=== PATIENT | male | born 1955 | race Caucasian/White ===

== ENCOUNTER → 2017-11-06 09:12 | Outpatient (CLI) | payer BC, SELFPAY ==
[2017-11-06 11:32] LABS: PSA,Total - Annual Screen 1.87 ng/mL (0.00-4.00)
== END ==
PROVIDERS: Family Provider Family Medicine; PCP Family Medicine; Visit Provider Urology
DX: Z12.5 Encounter for screening for malignant neoplasm of prostate (principal)
CPT/HCPCS: 36415; 84153; G0103

== ENCOUNTER 2021-05-14 11:33 | Emergency (ER) | payer BC, MEDICARE, SELFPAY ==
[2021-05-14 11:34] VITALS: BP 149/102; PULSE 83; RESP 16; TEMP 36.5; O2SAT 98; BMI 25.7
[2021-05-14 11:57] VITALS: TEMP 36.7
--- NOTE | 2021-05-14 12:31 | EKG12_ITS ---
Test Reason : Blood Pressure : / mmHG Vent. Rate : 079 BPM Atrial Rate : 079 BPM P-R Int : 154 ms QRS Dur : 100 ms QT Int : 370 ms P-R-T Axes : 051 014 028 degrees QTc Int : 424 ms Normal sinus rhythm Normal ECG Confirmed by SYED CATHERINE, TOBY ([id number]), editor managing director JAYDE GRAYSON ([id number]) on 05/16/2021 10:12:44 AM Referred By: Confirmed By:TOBY LYNCH MD
--- NOTE | 2021-05-14 12:32 | EDS_ITS ---
HPI History of Present Illness Chief Complaint: General Illness Informant: patient Onset/Context/Timing Onset: Weeks (1-2) Context: Gradual Onset Timing: Continuous Quality: aching Location: all over Current Severity: Mild Maximum Severity: Moderate Worsened by: nothing in particular Relieved by: ibuprofen/tylenol partially Associated Symptoms Associated Symptoms: brain fog, chronic cough, headaches off and on Narrative Narrative: Patient states he was mandated by his employer to get the Covid vaccine, and he did fine with the first Pfizer vaccine but after the second injection which was on May 04, he started having fevers and chills 24 hours later, followed by myalgias and malaise, brain fog, some headaches off and on, his chronic cough has not necessarily been worse, but has been persistent, and he still has all of these symptoms so presents for evaluation. [facility] Medical History (Updated 05/14/21 @ 14:[address] Derrick Olson MD) Kidney stones Medical History no medical history no medical history Allergy/AdvReac Type Severity Reaction Status Date / Time epinephrine Allergy Other Verified 05/14/21 11:37 iodine Allergy PT UNSURE Verified 05/14/21 11:37 OF REACTION Surgical History (Updated 05/14/21 @ 12:48 by Mikel Arroyo) History of lithotripsy Social History Smoking Status: Never smoker ROS ROS ED Constitutional Constitutional ED: Reports body ache(s), chills, fatigue, fever(s) and malaise Eyes Eyes: Denies change in vision or diplopia ENT ENT ED: Denies rhinorrhea or sore throat Cardiovascular Cardiovascular: Denies chest pain or palpitations Respiratory/Chest Respiratory/Chest: Denies cough or dyspnea Gastrointestinal Gastrointestinal: Denies abdominal pain, diarrhea, nausea or vomiting Genitourinary Genitourinary ED: Denies dysuria or hematuria Musculoskeletal Musculoskeletal: Reports myalgias; Denies back pain or neck pain Integumentary Denies abscess or rash Neurologic Neurologic: Reports other Details: I feel like my head is in a fog ; Denies confusion, convulsions, headache(s), paresthesias, seizures, syncope or weakness Psychiatric Psychiatric: Denies anxiety or suicidal thoughts EXAM Physical Exam Const Vital Signs: 05/14/21 11:34 05/14/21 11:57 05/14/21 12:45 Temperature 97.7 F L 98.0 F Temperature Source Temporal Oral Pulse Rate 83 Respiratory Rate 16 Respiratory Effort Normal Respiratory Pattern Normal Blood Pressure 149/102 H Blood Pressure Mean 117 Pulse Ox 98 96 Oxygen Delivery Method Room Air Room Air 05/14/21 14:07 Temperature Temperature Source Pulse Rate 79 Respiratory Rate 18 Respiratory Effort Respiratory Pattern Blood Pressure 140/94 H Blood Pressure Mean 109 Pulse Ox 96 Oxygen Delivery Method Room Air Positive well nourished and well developed General Appearance ED: well developed and NAD HEENT Reports moist mucous membranes normocephalic and atraumatic Eyes PERRL and EOMs intact bilaterally Neck full ROM, no lymphadenopathy, supple and no meningeal signs Resp normal respiratory effort and clear to auscultation bilaterally Cardio regular rate, regular rhythm and no murmurs Rate: Negative for tachycardic GI non-tender and non-distended Auscultation: normoactive bowel sounds Palpation: soft Back/Spine no CVA tenderness General Back: other FROM Extremity normal to inspection General Extremety ED: Negative for edema, pulses abnormal or tenderness General Extremity: Negative for edema or pulses abnormal Neuro oriented x3, CN's II-XII intact bilaterally and no sensory deficits noted Sensorium / Orientation: awake and alert Motor Exam: strength 5/5 throughout Skin no rashes or lesions noted and no wounds MDM MDM MDM Narrative Medical decision making narrative: Chest x-ray and labs are all unremarkable see below. His rapid Covid is negative. Although I agree it is unusual to have side effects from the vaccination to last 1.5 weeks, I suspect that is what is going on, unless he actually coincidentally has COVID-19. I am sending a PCR as a send out to rule this out, in the meantime I think the patient is able to work and go about his life while masked. Recommend supportive care. Lab Data Attestation: I reviewed the patient's lab results. Labs: Laboratory Results - last 24 hr 05/14/21 05/14/21 05/14/21 13:00 13:00 13:01 WBC 5.9 RBC 4.94 Hgb 15.0 Hct 43.4 MCV 87.9 MCH 30.4 MCHC 34.6 RDW Std Deviation 41.7 RDW Coeff of Kaitlyn 13.0 Plt Count 209 MPV 8.9 Immature Gran % (Auto) 0.200 Neut % (Auto) 59.0 Lymph % (Auto) 28.3 [place] % (Auto) 10.1 H Eos % (Auto) 1.7 Baso % (Auto) 0.7 Absolute Neuts (auto) 3.5 Absolute Lymphs (auto) 1.68 Nucleated RBC % 0 Sodium 137 Potassium 3.6 Chloride 102 Carbon Dioxide 29.0 Anion Gap 6 BUN 11 Creatinine 0.97 Estim Creat Clear Calc 65.16 Est GFR (MDRD) Af Amer 100 Est GFR (MDRD) Non-Af 82 BUN/Creatinine Ratio 11.4 Glucose 139 H Lactic Acid Calcium 8.7 Total Bilirubin 0.90 AST 30 ALT 57 Alkaline Phosphatase 78 Total Creatine Kinase 116 Troponin I High Sens 5 Total Protein 7.5 Albumin 3.3 Globulin 4.2 Albumin/Globulin Ratio 0.8 L Urine Color Yellow Urine Clarity Clear Urine pH 6.5 Ur Specific [place] 1.010 Urine Protein 15 H Urine Glucose (UA) Normal Urine Ketones Negative Urine Occult Blood Negative Urine Nitrite Negative Urine Bilirubin Negative Urine Urobilinogen 1 H Ur Leukocyte Esterase Negative Urine RBC 0 SEEN Urine WBC 0-5 SEEN Ur Squamous Epith Cells 0 SEEN Urine Bacteria 1+ Urine Mucus 0 SEEN 05/14/21 13:01 WBC RBC Hgb Hct MCV MCH MCHC RDW Std Deviation RDW Coeff of Kaitlyn Plt Count MPV Immature Gran % (Auto) Neut % (Auto) Lymph % (Auto) [place] % (Auto) Eos % (Auto) Baso % (Auto) Absolute Neuts (auto) Absolute Lymphs (auto) Nucleated RBC % Sodium Potassium Chloride Carbon Dioxide Anion Gap BUN Creatinine Estim Creat Clear Calc Est GFR (MDRD) Af Amer Est GFR (MDRD) Non-Af BUN/Creatinine Ratio Glucose Lactic Acid 0.8 Calcium Total Bilirubin AST ALT Alkaline Phosphatase Total Creatine Kinase Troponin I High Sens Total Protein Albumin Globulin Albumin/Globulin Ratio Urine Color Urine Clarity Urine pH Ur Specific [place] Urine Protein Urine Glucose (UA) Urine Ketones Urine Occult Blood Urine Nitrite Urine Bilirubin Urine Urobilinogen Ur Leukocyte Esterase Urine RBC Urine WBC Ur Squamous Epith Cells Urine Bacteria Urine Mucus Radiography Diagnostic Testing: Clinical Impression(s) from Imaging Studies Chest X-Ray 05/14/21 13:00 IMPRESSION: Unremarkable chest. In the presence of cough recommend CT for detection of mild/early viral infection. Electronically Signed: Lana Arcos MD at 13:20 EST Tel , Service support , EKG Initial EKG: Attestation: I personally reviewed and interpreted this EKG as follows: Interpretation: No Acute Injury Pattern Comments: Normal EKG Discharge Plan Triage Chief Complaint: General Illness ED Provider: Derrick Olson Dx/Rx/DC Orders Clinical Impression: Adverse effect of COVID-19 vaccine Instructions: ED Drug Reaction, Other, [employer] COVID-19 VACCINE- rna ingredient [id number] injection Injectable Suspension 1 dose Primary Care Provider: Josep Castañeda Referrals: Josep Castañeda MD [Primary Care Provider] - 3-5 Days if not improving Activity Restrictions/Additional Instructions: Continue tylenol and/or ibuprofen as needed for any achy pains or fevers. Disposition Disposition: Home, Self Care
[2021-05-14 12:45] VITALS: O2SAT 96
--- NOTE | 2021-05-14 13:00 | RAD_ITS ---
STUDY: X-RAY CHEST REASON FOR EXAM: Male, 65 years old. cough CHRONIC ON AND OFF COUGH SINCE 04/05, LAST COUPLE NIGHTS HAD NIGHT SWEATS AND FEVER TODAY OF 102 AT HOME TECHNIQUE: Frontal portable view of the chest COMPARISON: None. FINDINGS: The lungs are clear and expanded. There is no demonstrated pleural abnormality. Normal size heart. Normal mediastinum and pam. Normal visualized pulmonary arteries. Normal visualized aortic arch and descending thoracic aorta. Normal visualized thoracic spine. Normal visualized ribs, clavicles, and shoulders. There is no demonstrated abnormality of the visualized soft tissue structures of the upper abdomen. RAD/Chest 1 View (Portable) IMPRESSION: Unremarkable chest. In the presence of cough recommend CT for detection of mild/early viral infection. Electronically Signed: Lana Arcos MD at 13:20 EST Tel , Service support ,
[2021-05-14 13:13] LABS: Mucous, Urine 0 SEEN /hpf (<or=2+); Red Blood Cells-Urine 0 SEEN /hpf (0-5); Squamous Epithelial Cells - UA 0 SEEN /hpf (0-5)
[2021-05-14 13:17] LABS: Color, Urine Yellow (Yellow); Glucose, Dipstick Normal (Normal); Ketone-Dipstick Negative (Negative); Leukocyte Esterase-Dipstick Negative /ul (Negative); Nitrite-Dipstick Negative (Negative); Occult Blood-Urine Negative /ul (Negative); Protein-Dipstick 15 mg/dl (Negative); Urine Bilirubin Dipstick Negative (Negative); Urine Clarity Clear (Clear); Urine Urobilinogen 1 mg/dl (Normal); Urine pH 6.5 (5.0 - 8.0)
[2021-05-14 13:29] LABS: Bacteria 1+ /hpf (None Seen); White Blood Cells 0-5 SEEN /hpf (0-5)
[2021-05-14 13:35] LABS: ALB/GLOB Ratio 0.8 RATIO (0.9-2.4); AST(SGOT) 30 U/L (15-37); Alanine Aminotransfer ALT/SGPT 57 U/L (16-61); Albumin, Serum 3.3 g/dL (3.2-5.0); Alkaline Phosphatase 78 U/L (45-117); Anion Gap 6 (5-15); BUN 11 mg/dL (7-18); BUN/Creat Ratio 11.4 RATIO (10-20); CPK Total, Creatine Kinase 116 U/L (39-308); Calcium,Total 8.7 mg/dL (8.5-10.1); Chloride 102 mmol/L (98-107); Creatinine, Serum 0.97 mg/dL (0.70-1.30); EST Glomerular Filtration Rate 82 mL/min (>60); Est Glom Filt Rate - Afr Amer 100 mL/min (>60); Estimated Creatinine Clearance 65.16 ml/min; Globulin 4.2 g/dL (2.2-4.2); Glucose 139 mg/dL (74-106); Potassium 3.6 mmol/L (3.5-5.1); Protein, Total 7.5 g/dL (6.4-8.2); Sodium Level 137 mmol/L (136-145); Troponin-I HS 5 pg/mL (3.0-78.0)
[2021-05-14 13:40] LABS: Absolute Lymphocyte Count 1.68 X10^3/uL (0.83-4.51); Absolute Neutrophil Count 3.5 X10^3/uL (2.0-7.7); Basophil# 0.04 X10^3/uL; Basophil% 0.7 % (0-1); Eosinophils% 1.7 % (0-5); Hematocrit 43.4 % (40-54); Lymphocyte # 1.68 X10^3/ul (0.83-4.51); Lymphocyte % 28.3 % (19-41); Mean Corp Hgb Conc 34.6 g/dL (32-36); Mean Corpuscular Hgb 30.4 pg (27.0-32.0); Mean Corpuscular Volume 87.9 fL (80-94); Mean Platelet Vol. 8.9 fl (6.2-12.0); Monocyte% 10.1 % (0-10); NRBC Flagged by Analyzer 0 % (0-5); Platelet Count 209 K/mm3 (150-450); RBC Distribution Width SD 41.7 fl (35.1-43.9); Red Blood Count 4.94 M/mm3 (4.6-6.2); White Blood Count 5.9 K/mm3 (4.4-11.0)
[2021-05-14 13:44] LABS: Lactic Acid 0.8 mmol/L (0.4-1.9)
[2021-05-14 14:07] VITALS: BP 140/94; PULSE 79; RESP 18; O2SAT 96
[2021-05-14 15:09] VITALS: BP 153/91; PULSE 83; RESP 16; O2SAT 97
== END 2021-05-14 15:11 | disposition home or self-care (01) ==
PROVIDERS: Emergency Provider Emergency Medicine; PCP Family Medicine
DX: R05.9 Cough, unspecified (principal); R51.9 Headache, unspecified; M79.10 Myalgia, unspecified site; R53.81 Other malaise; T50.B95A Adverse effect of other viral vaccines, initial encounter
CPT/HCPCS: 71045; 80053; 81001; 82550; 83605; 84484; 85025; 87040; 87086; 87088; 87426; 87635; 93005; 99285; U0005; A4216; U0003

== ENCOUNTER → 2021-05-19 14:15 | Outpatient (CLI) | payer BC, MEDICARE, SELFPAY ==
--- NOTE | 2021-05-19 14:21 | RAD_ITS ---
EXAM: XR ABDOMEN, 2 VIEWS CLINICAL INDICATION: CHANGE IN BOWEL FUNCTION TECHNIQUE: Frontal view of the abdomen/pelvis with upright view of the abdomen. This report was created using [employer] report generation technology. COMPARISON: 07.06.15. FINDINGS: LOWER THORAX: No acute pathology. INTRAPERITONEAL SPACE: No free air. GASTROINTESTINAL TRACT: Unremarkable. Non-obstructive. No bowel or stomach distention. ORGANS: Unremarkable as visualized. No organomegaly. No abnormal calcifications. BONES/JOINTS: Degenerative findings in the lumbar spine. SOFT TISSUES: No acute pathology. RAD/Abd Inc Decub and/or Erect IMPRESSION: No acute findings in the abdomen or pelvis. Electronically Signed: Meng De La Torre MD at 20:58 EST , Service support ,
[2021-05-19 17:35] LABS: Erythrocyte Sedimentation Rate 11 mm/hr (0-20)
[2021-05-19 17:44] LABS: Vitamin D,25 Hydroxy 13.2 ng/mL
[2021-05-19 17:58] LABS: CRP 9.71 mg/L (0.0-3.0)
== END ==
PROVIDERS: PCP Family Medicine; Referring Provider Family Medicine; Visit Provider Family Medicine
DX: R53.83 Other fatigue (principal); R19.8 Other specified symptoms and signs involving the digestive system and abdomen
CPT/HCPCS: 36415; 74019; 82306; 84443; 85652; 86140

== ENCOUNTER 2022-02-11 10:59 | Emergency (ER) | payer BC, MEDICARE, SELFPAY ==
[2022-02-11 11:01] VITALS: BP 160/98; PULSE 99; RESP 17; TEMP 36.5; O2SAT 97; BMI 26.4
--- NOTE | 2022-02-11 11:22 | RAD_ITS ---
STUDY: X-RAY CHEST REASON FOR EXAM: Male, 66 years old. chest pain TECHNIQUE: PA and lateral views of the chest. COMPARISON: 05/14/2021 FINDINGS: The lungs are clear and expanded. There is no demonstrated pleural abnormality. Normal size heart. Normal mediastinum and pam. Normal visualized pulmonary arteries. Normal visualized aortic arch and descending thoracic aorta. Normal visualized thoracic spine. Normal visualized ribs, clavicles, and shoulders. There is no demonstrated abnormality of the visualized soft tissue structures of the upper abdomen. RAD/Chest PA and Lateral IMPRESSION: Normal x-ray examination of the chest. Electronically Signed: Reggie Harvey MD at 12:51 EDT ,
--- NOTE | 2022-02-11 11:22 | EKG12_ITS ---
Test Reason : CHEST PAIN Blood Pressure : / mmHG Vent. Rate : 099 BPM Atrial Rate : 099 BPM P-R Int : 150 ms QRS Dur : 096 ms QT Int : 340 ms P-R-T Axes : 065 044 049 degrees QTc Int : 436 ms Normal sinus rhythm Normal ECG Confirmed by BOBBY CATHERINE, DB ([id number]), web content editor JAYDE GRAYSON ([id number]) on 02/14/2022 9:08:12 AM Referred By: LIBRADO Confirmed By:NICHELLE ROSALES MD
[2022-02-11 11:43] LABS: Absolute Lymphocyte Count 2.26 X10^3/uL (0.83-4.51); Absolute Neutrophil Count 5.6 X10^3/uL (2.0-7.7); Basophil# 0.05 X10^3/uL; Basophil% 0.6 % (0-1); Eosinophil# 0.11 X10^3/uL; Eosinophils% 1.3 % (0-5); Hemoglobin 16.3 g/dL (13.0-16.5); Lymphocyte # 2.26 X10^3/ul (0.83-4.51); Lymphocyte % 26.4 % (19-41); Mean Corp Hgb Conc 35.4 g/dL (32-36); Mean Corpuscular Volume 90.2 fL (80-94); Mean Platelet Vol. 9.6 fl (6.2-12.0); Monocyte# 0.51 X10^3/uL; NRBC Flagged by Analyzer 0 % (0-5); Neutrophil # 5.61 X10^3/uL (2.7-7.7); Neutrophil % 65.5 % (47-70); Platelet Count 247 K/mm3 (150-450); RBC Distribution Width CV 12.4 % (11.6-14.6); RBC Distribution Width SD 40.8 fl (35.1-43.9); White Blood Count 8.6 K/mm3 (4.4-11.0)
[2022-02-11 12:00] VITALS: BP 151/99; PULSE 92; RESP 26; O2SAT 97
[2022-02-11 12:00] LABS: Anion Gap 6 (5-15); BUN 17 mg/dL (7-18); BUN/Creat Ratio 17.3 RATIO (10-20); Calcium,Total 9.1 mg/dL (8.5-10.1); Chloride 106 mmol/L (98-107); Creatinine, Serum 0.98 mg/dL (0.70-1.30); EST Glomerular Filtration Rate 81 mL/min (>60); Est Glom Filt Rate - Afr Amer 98 mL/min (>60); Estimated Creatinine Clearance 63.63 ml/min; Glucose 187 mg/dL (74-106); Potassium 4.1 mmol/L (3.5-5.1); Sodium Level 140 mmol/L (136-145); Troponin-I HS (w/2H Reflex) 4 pg/mL (3.0-78.0)
--- NOTE | 2022-02-11 13:09 | ED.VIS.CHEST ---
HPI History of Present Illness Chief Complaint: Chest Pain Detail of Chief Complaint: Right-sided chest pain and back pain for approximately 2 weeks. 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 He denies any precipitating, exacerbating or alleviating factors. This occurred after a near fall riding his tractor. He denies history of VTE. Denies leg pain, swelling discoloration. He denies history of peptic ulcers, hiatal hernia reflux. He denies black or maroon-colored stool. He denies smoking. Father had an AL at the age of 66. 3 colleagues had similar presentation in of MIs. Prior Similar Symptoms: No Recent Illness/Hospitalization: No CVD Risk Factors: Negative for Hypertension, Diabetes, Hypercholesterolemia, Family History 1' </=55 or Smoking PE Risk Factors: Negative for Recent Travel/Surgery, Recent Immobilization, Prior DVT or PE, Cancer or OCP + Smoking + >/=35 TAD Risk Factors: Negative for Marfan's Syndrome, Hypertension or Family History PFSH PFS Medical History Kidney stones Home Medications NK 02/11/22 [History Last Taken Unknown] Allergy/AdvReac Type Severity Reaction Status Date / Time epinephrine Allergy Other Verified 02/11/22 10:59 iodine Allergy PT UNSURE Verified 02/11/22 10:59 OF REACTION Surgical History History of lithotripsy Social History (Updated 02/11/22 @ 13:[address] Anthony Gupta MD) household members: none Smoking Status: Never smoker substance use type: does not use ROS ROS ED Constitutional Constitutional ED: Denies chills, fever(s), subjective, sweats or weight loss Eyes Eyes: Reports none; Denies blurry vision, change in vision or diplopia ENT ENT ED: Denies ear pain, rhinorrhea or sore throat Cardiovascular Cardiovascular: Reports as per HPI; Denies orthopnea or paroxysmal nocturnal dyspnea Respiratory/Chest Respiratory/Chest: Denies cough, dyspnea, dyspnea on exertion, orthopnea or paroxysmal nocturnal dyspnea Gastrointestinal Gastrointestinal: Denies abdominal pain or melena Genitourinary Genitourinary ED: Denies dysuria or hematuria Musculoskeletal Musculoskeletal: Reports back pain; Denies arthralgias, myalgias or neck pain Integumentary Denies abscess, Abrasions or rash Neurologic Neurologic: Denies headache(s), paresthesias or weakness Endocrine Endocrinology: Denies cold intolerance, heat intolerance or polydipsia Hematologic/Lymphatic Hematologic/Lymphatic: Denies easy bleeding or easy bruising EXAM Physical Exam Const Vital Signs: 02/11/22 11:01 02/11/22 11:14 02/11/22 11:22 Temperature 97.7 F L Temperature Source Temporal Pulse Rate 99 Respiratory Rate 17 Respiratory Effort Normal Non-Labored Blood Pressure 160/98 H Blood Pressure Mean 118 Pulse Ox 97 Oxygen Delivery Method Room Air Room Air 02/11/22 12:00 Temperature Temperature Source Pulse Rate 92 Respiratory Rate 26 H Respiratory Effort Blood Pressure 151/99 H Blood Pressure Mean 116 Pulse Ox 97 Oxygen Delivery Method Room Air Positive well nourished and well developed General Appearance ED: well developed and NAD; Negative for pallor HEENT Reports moist mucous membranes HEENT Narrative: Ears normal. Nares patent. Mucosa moist. Uvula midline. No deviation of protrusion. Posterior pharynx no erythema or exudate. normocephalic and atraumatic Eyes PERRL and EOMs intact bilaterally General Eye ED: Negative for pale conjunctiva or scleral icterus Neck no lymphadenopathy, supple and no JVD Chest Wall inspection of chest normal and palpation of chest normal Chest Narrative: Patient reports pain over third fourth rib with deep palpation on the right. Resp normal respiratory effort and clear to auscultation bilaterally Cardio regular rate, regular rhythm, S1 normal heart sound, S2 normal heart sound and no murmurs GI normal to inspection, nondistended, normoactive bowel sounds, soft to palpation, non-tender, non-distended and no masses; Negative for hepatosplenomegaly Back/Spine no CVA tenderness and no thoracic nor lumbar tenderness Extremity normal to inspection Extremity Narrative: There is no asymmetry, swelling, discoloration, leg vein distention, palpable cords or tenderness along the distribution of the deep venous system. Neuro Sensorium / Orientation: awake Psych mental status grossly normal Skin no rashes or lesions noted and no wounds General Skin Exam: Negative for jaundice or pallor MDM MDM MDM Narrative Medical decision making narrative: Patient with very atypical chest pain. Doubt cardiac etiology. Patient has concerns that were expressed. Lab Data Attestation: I reviewed the patient's lab results. Lab results narrative: CBC normal. Basic metabolic panel normal. First troponin is normal however greater than 3. 2-hour was obtained. Patient was not treated with aspirin since there is little concern for cardiac etiology. Patient was reevaluated at 1330. He is aware of results and pending repeat troponin. Second troponin 5. Delta 1. Both troponins less than 7. Negative predictive value for cardiac disease is 100%. Patient was discharged home Labs: Laboratory Results - last 24 hr 02/11/22 02/11/22 02/11/22 11:13 11:13 14:08 WBC 8.6 RBC 5.10 Hgb 16.3 Hct 46.0 MCV 90.2 MCH 32.0 MCHC 35.4 RDW Std Deviation 40.8 RDW Coeff of Kaitlyn 12.4 Plt Count 247 MPV 9.6 Immature Gran % (Auto) 0.200 Neut % (Auto) 65.5 Lymph % (Auto) 26.4 [place] % (Auto) 6.0 Eos % (Auto) 1.3 Baso % (Auto) 0.6 Absolute Neuts (auto) 5.6 Absolute Lymphs (auto) 2.26 Nucleated RBC % 0 Sodium 140 Potassium 4.1 Chloride 106 Carbon Dioxide 28.0 Anion Gap 6 BUN 17 Creatinine 0.98 Estim Creat Clear Calc 63.63 Est GFR (MDRD) Af Amer 98 Est GFR (MDRD) Non-Af 81 BUN/Creatinine Ratio 17.3 Glucose 187 H Calcium 9.1 Troponin I High Sens 4 5 Radiography Chest X-Ray - ED: 2 View and Read by Radiologist (Cardiac silhouette and size unremarkable. Lung parenchyma normal. Perihilar region normal. Osseous structures normal. The chest x-ray is normal.) Diagnostic Testing: Clinical Impression(s) from Imaging Studies Chest X-Ray 02/11/22 11:22 IMPRESSION: Normal x-ray examination of the chest. Electronically Signed: Reggie Harvey MD at 12:51 EDT , Discharge Plan Triage Chief Complaint: Chest Pain ED Provider: Anthony Gupta Dx/Rx/DC Orders Clinical Impression: Chest pain of uncertain etiology Instructions: ED Chest Pain, Noncardiac Prescriptions: No Action NK Primary Care Provider: Josep Castañeda Referrals: Josep Castañeda MD [Primary Care Provider] - 3-5 Days if not improving Disposition Disposition: Home, Self Care
[2022-02-11 13:39] LABS: Reflex Troponin-HS? (from REC) Y
[2022-02-11 14:33] LABS: Troponin-I HS 5 pg/mL (3.0-78.0)
[2022-02-11 14:53] VITALS: BP 145/94; PULSE 72; RESP 18; O2SAT 96
== END 2022-02-11 15:07 | disposition home or self-care (01) ==
PROVIDERS: Emergency Provider Emergency Medicine; PCP Family Medicine; Visit Provider Emergency Medicine
DX: R07.9 Chest pain, unspecified (principal); M54.9 Dorsalgia, unspecified
CPT/HCPCS: 36415; 71046; 80048; 84484; 85025; 93005; 99284; A4216

== ENCOUNTER → 2022-02-15 | Outpatient (CLI) | payer BC, MEDICARE, SELFPAY ==
--- NOTE | 2022-02-15 06:17 | RAD_ITS ---
STUDY: X-RAY - ORBITS REASON FOR EXAM: Male, 66 years old. FOR MRI TECHNIQUE: 2 view(s) of the orbits were obtained. COMPARISON: None. FINDINGS: Normal bilateral orbits without a metallic orbital foreign body. Normal visualized facial bones. Normal paranasal sinuses. The soft tissue structures are unremarkable. RAD/Orbits for Foreign Body IMPRESSION: No demonstrated metallic orbital foreign body. The patient is radiographically cleared for an MRI examination. Electronically Signed: Jesus Kern MD at 6:33 EDT ,
--- NOTE | 2022-02-15 06:37 | MRI_ITS ---
ACR Level 3 findings have been noted. An addendum which confirms receipt of the report will follow. STUDY: MRI CERVICAL SPINE WITHOUT CONTRAST REASON FOR EXAM: Male, 66 years old. DYSFUNCTION OF CERVICAL TECHNIQUE: Standardized fat and water weighted pulse sequences were obtained in the sagittal and axial planes. COMPARISON: None FINDINGS: Normal foramen magnum and brainstem-cervical cord junction. Normal craniovertebral junction. Normal anterior atlantoaxial articulation. Normal odontoid process. Normal cervical lordosis. Normal vertebral bodies and posterior osseous elements. C2-3: Normal endplates. Normal disc height, signal and morphology. Normal central canal and intervertebral neural foramina. C3-4: Normal endplates. Normal disc height. Minimal degenerative anterolisthesis of C3 on C4. Normal central canal and intervertebral neural foramina. C4-5: Normal endplates. Normal disc height, signal and morphology. Normal central canal and intervertebral neural foramina. C5-6: Anterior and posterior marginal spurs. Normal endplates. Moderate disc space height narrowing. Normal central canal. Moderate stenosis of the intervertebral neural foramina. C6-7: Normal endplates. Minimal disc space height narrowing. Normal central canal and intervertebral neural foramina. C7-T1: Normal endplates. Normal disc height, signal and morphology. Normal central canal and intervertebral neural foramina. T1-T2, T2-T3, T3-T4 and T4-T5: (Sagittal only). Normal endplates. Normal disc height and morphology. Normal central canal and intervertebral neural foramina. Abnormal intramedullary high signal intensity of the cervical spinal cord extending from the lower C6 vertebral body level down to the mid C7 vertebral body level. The spinal cord does not appear expanded or atrophic. The remainder of the cervical spinal cord is normal. Normal included portions of the upper thoracic spinal cord. No CHIARI anomaly. No foramen magnum stenosis. Normal visualized soft tissue structures. MRI/Spine Cervical (Routine) IMPRESSION: 1. Abnormal intramedullary high signal intensity of the cervical spinal cord at the lower C6 vertebral body level down to the mid C7 vertebral body level (series 2, image 8; series 4, images 8). The cord is not expanded or atrophic at this level. This does not have the appearance of a syrinx and is not visible on T1. Etiology is unknown. 2. No associated CHIARI anomaly or foramen magnum stenosis. 3. C5-C6 disc space height narrowing with posterior marginal spurs and moderate stenosis of the intervertebral neural foramina. RECOMMENDATION: MRI cervical spine with intravenous contrast for further evaluation. 2. Electronically Signed: Joao Mo MD at 9:14 EDT ,
--- NOTE | 2022-02-15 06:37 | MRI_ITS ---
STUDY: MRI THORACIC SPINE WITHOUT CONTRAST REASON FOR EXAM: Male, 66 years old. DYSFUNCTION OF THORACIC TECHNIQUE: Standardized fat and water weighted pulse sequences were obtained in the sagittal and axial planes. COMPARISON: None. FINDINGS: Normal kyphosis of the thoracic spine. There is no substantial scoliosis. T1-2, T2-3, T3-4, T4-5, T5-6, T6-7, T7-8, T8-9, T9-10, T10-11, T11-12: Normal endplates. Normal disc hydration, heights and morphology of the corresponding intervertebral discs. Normal central canal and intervertebral neural foramina at the corresponding levels. Normal visualized thoracic cord. Normal conus medullaris that terminates at the T12-L1 disc space level. The soft tissue structures are unremarkable. MRI/Spine Thoracic (Routine) IMPRESSION: Normal unenhanced MRI examination of the thoracic spine. Electronically Signed: Joao Mo MD at 9:09 EDT ,
== END | disposition home or self-care (01) ==
PROVIDERS: PCP Family Medicine
DX: M99.01 Segmental and somatic dysfunction of cervical region (principal); M99.02 Segmental and somatic dysfunction of thoracic region
CPT/HCPCS: 70030; 72141; 72146

== ENCOUNTER → 2022-02-28 | Outpatient (CLI) | payer SELFPAY ==
--- NOTE | 2022-02-28 07:26 | MRI_ITS ---
HISTORY: RADICULOPATHY- Abnormality C5-C6 on previous noncontrast exam. TECHNIQUE: Sagittal T2 and T1 weighted MR images of the cervical spine were obtained without contrast. Sagittal and axial postcontrast T1-weighted images also obtained. 90 images. COMPARISON: 02/15/2022. FINDINGS: VERTEBRAE: Vertebral body heights maintained. Degenerative bone marrow endplate changes at C5-6 and C6-7. VERTEBRAL ALIGNMENT: No anterior or posterior subluxation. SPINAL CANAL: Decreased T2 signal abnormality involving the cervical cord at the C6-7 level. No enhancing cord lesion identified. No gross epidural collection. No enhancing intradural extramedullary mass. SOFT TISSUES: No prevertebral fluid collection. INTERVERTEBRAL DISCS: C5-6: Posterior disc bulge osteophyte complex with uncovertebral and facet arthropathy resulting in mild central canal stenosis and mild bilateral foraminal narrowing. C6-7: Mild posterior disc bulge osteophyte complex with minimal narrowing of the thecal sac. C7-T1: Mild posterior disc bulge osteophyte complex with uncovertebral and facet arthropathy resulting in minimal narrowing of the thecal sac and mild bilateral foraminal narrowing . MRI/Spine Cervical WITH Contrast IMPRESSION: No evidence for enhancing cervical cord lesion. Decreased signal abnormality involving the cord at the C6-7 level. Mild degenerative disc disease in the cervical spine. Electronically Signed: Elena Keenan MD at 10:31 EDT ,
== END | disposition home or self-care (01) ==
PROVIDERS: PCP Family Medicine
DX: M99.01 Segmental and somatic dysfunction of cervical region (principal); M99.02 Segmental and somatic dysfunction of thoracic region; M54.12 Radiculopathy, cervical region
CPT/HCPCS: 72142; A9575

== ENCOUNTER 2022-05-29 08:30 | Outpatient (RCR) | payer BC, MEDICARE, SELFPAY ==
--- NOTE | 2022-04-18 14:10 | HP.PTEVAL_ITS ---
Patient's Visit Information WILMAN ESTEVEZ is a 66 year old M referred to Physical Therapy by Dr. Carlito Morris MD with a diagnosis of cervical foraminal stenosis. Date of Evaluation: 04/18/22 Physical Therapist: Arnulfo Garcia, DPT, OCS, CSCS - Visit Plan Frequency: 2x /Week Duration: 4-6 Weeks Plan: 2x/week for 4-6 to start for. 1. DTR rhomboid R medial to scap, stretch same. 2. Neck ROM emphasizing flexion stretch. 3. US to R rhomboid tender area thermal. 4. strengthening posture , rhomboids and neck to I. stretch median nerve in R UE. - Subjective January 14 was mowing on tractor and turned head quickly to right and felt a lit tle weird. No problem that day. got up the next am and woke up with pain in neck/R shoulder. Went to work and pain got worse. Rested adn took it easy, took some time off due to this discomfort. On and off of work. Pain is r scapular and neck , was head tilted left to begin with. Has been to nuerous doctors to measure ROM and strength including chiropractor and is doing pretty well. Also had massage which helped quite a bit. Hot shower and hot bath. Has some intermittent tingly numb in R UE and not sure what brings it on except certain body positions. Extending R arm out aggravates it(the weird feeling in arm). 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 No history of this. Remains fairly active. Pain this week to 4/10 reaching out for something. Pain is between soine and R shoulder blade and down back of arm. sometimes down to 5th digit. He thinks c7 nerve radiculopathy. Activities: avoids lifting, has been off work for a long time, not since February. - Pain R neck and scap Pain Intensity (Out of 10): 1 Pain Intensity Range: 0, 4 Comment: better iwth sitting up straight. - Objective Posture is forward head. baseline posterior R shoulder pain 2/10. protrusion NE. retraction P arm pain, W. repeated flexion. B. Stretch of median nerve is painful. reflexes 1/3 biceps and triceps. Sensation WNL UE gross light touch. Strength is 4/5 UE without myotomal abnormalities. cervical aROM 60 extension with pain R rhomboid, R rotation 60 and L rotation 55 without pain. - cervical compression test. - Balance/Special Test Scores Oswestry Low Back Score: 15 - Goals Goal 1:: No tenderness in R scap and full ROM c/s without pain Goal Time Frame: 4-6 Weeks Goal 2:: Pt feel 95% better overall and ready to return to work Goal Time Frame: 4-6 Weeks Goal 3:: oswestry back score 5 or less Goal Time Frame: 4-6 Weeks Goal 4:: I management of condition Goal Time Frame: 4-6 Weeks - Rehabilitation Potential Physical Therapy Diagnosis: cervical foraminal stenosis Rehabilitation Potential: Good - Anticipated Interventions Patient/Client Instruction: Educate patient on: Condition, Plan of Care For the Purpose of:: To decrease pain, To increase ROM Therapeutic Exercise to Include: Strength training, Flexibilty training, Passive ROM, Active ROM For the Purpose of:: To decrease pain, To increase ROM, To improve muscle performance and motor function, To increase tolerance to activity/condition/position, To improve ability of physical actions for home/community/work/leisure Manual Therapy Techniques to Include: Passive ROM, Soft tissue mobilization For the Purpose of:: To decrease pain, To increase ROM Ultrasound (thermal/non thermal): Yes For the Purpose of:: To improve nutrient delivery to tissue Thank you for the opportunity to evaluate your patient. For Medicare and Medicare HMO plans, please review the plan of care and approve it. It will need to be FAXED BACK to us at [phone] for Medicare purposes. For Medicare only, by signing this I certify the plan of care. Please let me know if there are questions or concerns regarding this plan of care. Physician Signature: Date:
--- NOTE | 2022-05-29 09:16 | HP.PTDCSUM ---
It has been my pleasure to treat WILMAN ESTEVEZ referred by Dr. Carlito Morris MD, with the diagnosis of cervical foraminal stenosis for a total of 13 visit(s). Discharge Date: 05/29/22 Please see the following information for a summary of their discharge status. Subjective: Much better. Massage deep helped the most. Hot shower helps. Has very little pain in the last week. Every day stuff is not a problem. Started lifting heavier things and nothing makes it a problem. Sleep is Ok. Scheduled back to work on 06/14/22. Doing HEP and band without a problem. Nothing scheduled with Dr. Morris. R neck and scap Pain Intensity (Out of 10): 0 % Improvement: 80 Objective/Function: 62 AROM B rotations, 65 extension, some tightness but no pain. Confident with movement and ready to return to work. Goal 1:: No tenderness in R scap and full ROM c/s without pain Goal Progress: Progressing Goal 2:: Pt feel 95% better overall and ready to return to work Goal Progress: 80% Goal 3:: oswestry back score 5 or less Goal Progress: Goal Met Goal 4:: I management of condition Goal Progress: Goal Met Plan: d/c Discharge Comments: Will contact doctor if pain returns. If there are questions or concerns regarding this patient's physical therapy, please feel free to call me at [phone]. Thank you for the referral of this patient. Sincerely, Arnulfo Garcia, DPT, OCS, CSCS Balance/Gait/Functional tests - Balance/Special Test Scores Oswestry Low Back Score: 15 Oswestry Neck Score: 1
== END 2022-05-29 09:52 | disposition home or self-care (01) ==
LOC: PT 08:30
PROVIDERS: PCP Family Medicine; Referring Provider Orthopaedic Surgery Orthopaedic Surgery of the Spine; Visit Provider Orthopaedic Surgery Orthopaedic Surgery of the Spine
DX: M48.02 Spinal stenosis, cervical region (principal)
CPT/HCPCS: 97035; 97110; 97140; 97161; 97164

== ENCOUNTER → 2023-03-06 | Outpatient (CLI) | payer BC, MEDICARE, SELFPAY ==
--- NOTE | 2023-03-06 16:15 | RAD_ITS ---
STUDY: X-RAY - ABDOMEN/PELVIS REASON FOR EXAM: Male, 67 years old. PERSONAL HX OF URINARY CALCULI TECHNIQUE: Single AP view of the abdomen / pelvis. COMPARISON: 05/19/2021. FINDINGS: Normal visualized lung bases. There is an unremarkable bowel gas pattern. There is no demonstrated free abdominal air. The visualized liver, spleen and kidneys are grossly normal in size and morphology. Normal soft tissue structures. Normal visualized osseous structures. RAD/Abdomen Single View IMPRESSION: Normal x-ray examination of the abdomen and pelvis. Electronically Signed: Jean Claude Vargas MD at 18:54 EDT ,
[2023-03-06 17:15] LABS: PSA,Total - Annual Screen 3.34 ng/mL (0.00-4.00)
== END | disposition home or self-care (01) ==
LOC: LAB 16:00
PROVIDERS: PCP Family Medicine; Referring Provider Nurse Practitioner; Visit Provider Nurse Practitioner
DX: Z12.5 Encounter for screening for malignant neoplasm of prostate (principal); Z87.442 Personal history of urinary calculi
CPT/HCPCS: 36415; 74018; 84153; G0103

== ENCOUNTER 2023-11-10 02:51 | Emergency (ER) | payer MEDICARE, OTHER, SELFPAY ==
[2023-11-10 02:52] VITALS: BP 208/101; PULSE 87; RESP 15; TEMP 36.4; O2SAT 95; BMI 27.6
--- NOTE | 2023-11-10 03:17 | RAD_ITS ---
INDICATION: chest pain EXAMINATION/TECHNIQUE: X-RAY - XR Chest 1 View AP portable. 3:41 AM COMPARISON: 02/11/2022 FINDINGS: LINES/DEVICES: None. LUNGS: No consolidation. No pneumothorax. MEDIASTINUM: Unremarkable. CARDIAC SILHOUETTE: Not enlarged. BONES AND SOFT TISSUES: No acute abnormalities. RAD/Chest 1 View (Portable) IMPRESSION: No evidence of active intrathoracic disease. Electronically Signed: Judy Tolbert MD at 4:48 EDT ,
--- NOTE | 2023-11-10 03:17 | EKG12_ITS ---
Test Reason : CP Blood Pressure : / mmHG Vent. Rate : 082 BPM Atrial Rate : 082 BPM P-R Int : 156 ms QRS Dur : 098 ms QT Int : 376 ms P-R-T Axes : 048 004 028 degrees QTc Int : 439 ms Normal sinus rhythm Normal ECG Confirmed by TOBY LYNCH MD ([id number]), general expeditor HYACINTH ARGUETA ([id number]) on 11/12/2023 6:47:45 AM Referred By: Confirmed By:TOBY LYNCH MD
--- NOTE | 2023-11-10 03:22 | ED.VIS.CHEST ---
HPI History of Present Illness Chief Complaint: Chest Pain Informant: patient and spouse/S.O. Narrative Narrative: 68-year-old male presenting to the emergency room with left shoulder and left back pain. Patient states for about 2 weeks he has had this pain which seems to be worse today. He saw primary care felt to be musculoskeletal. He had a similar issue on the right side about a year and a half ago for which she had deep tissue massage and ultrasound and it resolved. States he got a prescription for physical therapy and has been doing that has not been helping. Today they tried some traction of his neck. He wonders if that has anything to do with his increase in pain tonight. states she took his blood pressure is significantly higher than normal. He denies any chest pain or shortness of breath. Pain is worse with touch. He denies any significant medical problems. PFSH PFS Medical History Kidney stones Home Medications ?Medication ?Instructions ?Recorded ?Last Taken ?Type ketorolac 10 mg tablet 10 mg PO Q8H PRN pain #15 tabs 11/10/23 Unknown Rx Allergy/AdvReac Type Severity Reaction Status Date / Time epinephrine Allergy Other Verified 11/10/23 02:54 iodine Allergy PT UNSURE Verified 11/10/23 02:54 OF REACTION Surgical History History of lithotripsy Social History household members: none Smoking Status: Never smoker substance use type: does not use ROS ROS ED Constitutional Constitutional ED: Denies chills, fever(s) or weight loss Eyes Eyes: Denies change in vision or diplopia ENT ENT ED: Denies ear pain, rhinorrhea or sore throat Cardiovascular Cardiovascular: Denies chest pain, orthopnea, palpitations or racing heartbeat Respiratory/Chest Respiratory/Chest: Denies cough, dyspnea or orthopnea Gastrointestinal Gastrointestinal: Denies abdominal pain, diarrhea, nausea or vomiting Genitourinary Genitourinary ED: Denies dysuria, hematuria or urinary frequency Musculoskeletal Musculoskeletal: Reports back pain and other Details: See history of present illness ; Denies arthralgias, myalgias or neck pain Integumentary Denies abscess or rash Neurologic Neurologic: Denies headache(s), paresthesias or weakness Psychiatric Psychiatric: Denies anxiety, depression, suicidal ideation or suicidal thoughts Endocrine Endocrinology: Denies polydipsia, polyphagia or polyuria Allergic/Immunologic Allergic/Immunologic ED: Denies mouth swelling, tongue swelling or urticaria EXAM Physical Exam Const Vital Signs: 11/10/23 02:52 11/10/23 02:54 11/10/23 03:51 Temperature 97.5 F L Temperature Source Temporal Pulse Rate 87 76 Respiratory Rate 15 17 Respiratory Effort Normal Blood Pressure 208/101 H 162/98 H Blood Pressure Mean 136 119 Pulse Ox 95 96 Oxygen Delivery Method Room Air Room Air 11/10/23 04:37 11/10/23 04:55 Temperature Temperature Source Pulse Rate 69 75 Respiratory Rate 17 20 H Respiratory Effort Blood Pressure 167/102 H 158/101 H Blood Pressure Mean 123 120 Pulse Ox 95 95 Oxygen Delivery Method Room Air Room Air Positive well nourished and well developed General Appearance ED: well developed and NAD HEENT Reports normocephalic, head/scalp atraumatic and moist mucous membranes Eyes PERRL and EOMs intact bilaterally Neck no lymphadenopathy, supple and no JVD Chest Wall inspection of chest normal and palpation of chest normal Resp normal respiratory effort and clear to auscultation bilaterally Cardio regular rate, regular rhythm and no murmurs GI normal to inspection, nondistended, normoactive bowel sounds and non-tender Palpation: soft Back/Spine no CVA tenderness and normal ROM Back/Spine Narrative: Patient has tenderness to palpation over the rhomboid region on the left. This seems to reproduce his pain. Extremity normal to inspection General Extremety ED: Negative for edema General Extremity: Negative for edema Neuro oriented x3 and CN's II-XII intact bilaterally Sensorium / Orientation: alert Motor Exam: strength 5/5 throughout Psych mental status grossly normal Mood & Affect: Negative for depressed or tearful Skin no rashes or lesions noted and no wounds MDM MDM MDM Narrative Medical decision making narrative: Differential diagnosis includes but not limited to ACS dissection pneumothorax hypertensive urgency/emergency pulmonary embolism musculoskeletal back pain Basic blood work was obtained essentially negative. D-dimer within normal limits troponin is 5. My depend interpretation of the chest x-ray is no acute process normal mediastinal silhouette. Without treatment the patient's blood pressures come down 158/101. He got significant improvement of his symptoms with a dose of Toradol. I do believe that the patient's pain is most likely musculoskeletal in nature. Hypertension could be multifactorial in nature. We spoke at length regarding possible home treatments. I think it is reasonable to obtain a chiropractic evaluation. He states that physical therapy has been focusing on his neck which I do not get the impression based on tonight symptoms of a radiculopathy from the cervical spine. I care for some Toradol to take with food. Patient to follow-up with his blood pressure. Return if worsening or concerns History & Record Review Discussion w/independent historian: Patient and Significant other Lab Data Attestation: I reviewed the patient's lab results. Labs: Laboratory Results - last 24 hr 11/10/23 03:15 WBC 10.2 RBC 5.04 Hgb 15.3 Hct 45.4 MCV 90.1 MCH 30.4 MCHC 33.7 RDW Std Deviation 42.1 RDW Coeff of Kaitlyn 12.9 Plt Count 224 MPV 9.4 Immature Gran % (Auto) 0.200 Neut % (Auto) 53.9 Lymph % (Auto) 35.2 [place] % (Auto) 7.8 Eos % (Auto) 2.4 Baso % (Auto) 0.5 Absolute Neuts (auto) 5.5 Absolute Lymphs (auto) 3.59 Nucleated RBC % 0 D-Dimer Quant (PE/DVT) 0.32 Sodium 139 Potassium 3.6 Chloride 106 Carbon Dioxide 25.0 Anion Gap 8 BUN 25 H Creatinine 0.94 Estim Creat Clear Calc 70.39 Est GFR (MDRD) Af Amer 102 Est GFR (MDRD) Non-Af 84 BUN/Creatinine Ratio 26.5 H Glucose 117 H Calcium 9.2 Troponin I High Sens 5 Radiography Diagnostic Testing: Clinical Impression(s) from Imaging Studies Chest X-Ray 11/10/23 03:17 IMPRESSION: No evidence of active intrathoracic disease. Electronically Signed: Judy Tolbert MD at 4:48 EDT , EKG Initial EKG: Attestation: I personally reviewed and interpreted this EKG as follows: Comments: Normal sinus rhythm ventricular rate of [address] segments noted Discharge Plan Triage Chief Complaint: Chest Pain ED Provider: Ulisses Mccarthy Dx/Rx/DC Orders Clinical Impression: Back pain, Hypertension Instructions: ED Back Spasm, No Trauma, ED Hypertension, To Be Confirmed Prescriptions: New ketorolac 10 mg tablet 10 mg PO Q8H PRN (Reason: pain) Qty: 15 0RF Rx Instructions: maximum total duration of 5 days from all oral, intranasal, or parenteral formulations Primary Care Provider: Silvestre Castañeda Referrals: Silvestre Castañeda MD [Primary Care Provider] - 1 Week (for recheck of blood pressure ) Monisha Mcgill DC [Non-Staff -Ordering Privileges] - As soon as possible (for chiropractic evaluation) Print Language: [place] Disposition Disposition: Home, Self Care
[2023-11-10 03:27] LABS: Absolute Lymphocyte Count 3.59 X10^3/uL (0.83-4.51); Absolute Neutrophil Count 5.5 X10^3/uL (2.0-7.7); Basophil# 0.05 X10^3/uL; Basophil% 0.5 % (0-1); Eosinophil# 0.25 X10^3/uL; Eosinophils% 2.4 % (0-5); Hematocrit 45.4 % (40-54); Hemoglobin 15.3 g/dL (13.0-16.5); Lymphocyte # 3.59 X10^3/ul (0.83-4.51); Lymphocyte % 35.2 % (19-41); Mean Corp Hgb Conc 33.7 g/dL (32-36); Mean Corpuscular Hgb 30.4 pg (27.0-32.0); Mean Corpuscular Volume 90.1 fL (80-94); Mean Platelet Vol. 9.4 fl (6.2-12.0); Monocyte% 7.8 % (0-10); NRBC Flagged by Analyzer 0 % (0-5); Neutrophil % 53.9 % (47-70); Platelet Count 224 K/mm3 (150-450); RBC Distribution Width CV 12.9 % (11.6-14.6); RBC Distribution Width SD 42.1 fl (35.1-43.9); Red Blood Count 5.04 M/mm3 (4.6-6.2); White Blood Count 10.2 K/mm3 (4.4-11.0)
[2023-11-10] MEDS: Ketorolac 30 MG/ML Syringe IV (03:34)
[2023-11-10 03:51] VITALS: BP 162/98; PULSE 76; RESP 17; O2SAT 96
[2023-11-10 03:52] LABS: D-Dimer Quantitative (DVT/PE) 0.32 FEU/ug/m (0.27-0.49)
[2023-11-10 04:11] LABS: Anion Gap 8 (5-15); BUN 25 mg/dL (7-18); BUN/Creat Ratio 26.5 RATIO (10-20); Calcium,Total 9.2 mg/dL (8.5-10.1); Chloride 106 mmol/L (98-107); Creatinine, Serum 0.94 mg/dL (0.70-1.30); EST Glomerular Filtration Rate 84 mL/min (>60); Est Glom Filt Rate - Afr Amer 102 mL/min (>60); Estimated Creatinine Clearance 70.39 ml/min; Glucose 117 mg/dL (74-106); Potassium 3.6 mmol/L (3.5-5.1); Sodium Level 139 mmol/L (136-145); Troponin-I HS 5 pg/mL (3.0-78.0)
[2023-11-10 04:37] VITALS: BP 167/102; PULSE 69; RESP 17; O2SAT 95
[2023-11-10 04:55] VITALS: BP 158/101; PULSE 75; RESP 20; O2SAT 95
[2023-11-10 05:55] VITALS: BP 175/98; PULSE 71; RESP 16; TEMP 36.2; O2SAT 94
== END 2023-11-10 05:56 | disposition home or self-care (01) ==
PROVIDERS: Emergency Provider Emergency Medicine; PCP Family Medicine; Visit Provider Emergency Medicine
DX: M54.9 Dorsalgia, unspecified (principal); I10 Essential (primary) hypertension; M25.512 Pain in left shoulder
CPT/HCPCS: 71045; 80048; 84484; 85025; 85379; 93005; 96374; 99283; A4216

== ENCOUNTER 2023-11-28 14:00 | Outpatient (RCR) | payer MEDICARE, OTHER, SELFPAY ==
--- NOTE | 2023-10-22 07:50 | HP.PTEVAL ---
Patient's Visit Information Visit Information Visit Information: WILMAN ESTEVEZ is a 68 year old M referred to Physical Therapy by Dr. Silvestre Castañeda MD with a diagnosis of L rhomboid strain. Date of Evaluation: 10/22/23 Physical Therapist: Arnulfo Garcia, DPT, OCS, CSCS Visit Plan Frequency: 3x /Week Duration: 4-6 Weeks Plan: 3x/week for 2-4 weeks to start for 1. MH and DTR to L rhomboid knot 2. US thermal to same 3. stretch rhomboid and cervical/scap ROM 4. eventual strength of scap once pain is 75% better IE: ball tissue release supine 2 min and rhomboid stretch doorway 30x5 at least 2x/day and activitiy modficiation with HO Subjective Subjective: L rhomboid medial scapular pain. , sometimes tingling in L arm. May have started reaching back to L for seatbelt and turned a long way. Been on and off since for the last month. Saw chiropractor but that has not helped. Pain is intermittent and worse with reaching and elevating L UE and sometimes moving neck. Sleep is interrupted sometimes, was up til 3 am last night. 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 basic ADLs : can do them all, has to be careful of L UE reaching. Exercises did not help that last time but DTR did. Is active. Pain L rhomboid area: Pain Intensity (Out of 10): 3 Pain Intensity Range: 0 and 6 Objective Objective: Walks I into PT and transfers bed and chair I without wincing. Posture is slightly forward head but unremarkable otherwise. cervical aROM 45 ext with slight R deviation, rotations are 50 with some pain to the L. SB painful L but 15 degree B. scap aROM WFL, down and back feels good. UE AROM WFL and has pain increase with long lever arm reaching and flexion, abd. Tender to palpation with knot in LK rhomboids b/w scap and spine. reflexes 1/3 bi and tri B. Sensation WNL to gross light touch in B UE. strength elbows and wrsits 4+/5 without pain, flexion and abduction painful L medial scap but strong. rotations at shoulder are not painful and strong. + c/s compression with L SB Balance/Special Test Scores Quick DASH Score: 27.2725 Goals Goal 1:: sleep without waking at night due to pain Goal Time Frame: 2-4 Weeks Goal 2:: Pain in L rhomboid area 90% better and 1/10 at worst, manageable Goal Time Frame: 4-6 Weeks Goal 3:: reach for objects with L arm without increased pain Goal Time Frame: 4-6 Weeks Goal 4:: I appropriate ex to limit future problems(strength scap) Goal Time Frame: 4-6 Weeks Goal 5:: Qucick dash score 15 or better Goal Time Frame: 4-6 Weeks Rehabilitation Potential Physical Therapy Diagnosis: rhomboid pain limiting comfortable funciton and sleep Rehabilitation Potential: Good Anticipated Interventions Patient/Client Instruction: Educate patient on: Condition and Plan of Care For the Purpose of:: To decrease pain, To increase ROM, To improve nutrient delivery to tissue, To improve muscle performance and motor function, To increase tolerance to activity/condition/position and To improve ability of physical actions for home/community/work/leisure Therapeutic Exercise to Include: Strength training, Flexibilty training, Passive ROM and Active ROM For the Purpose of:: To decrease pain, To increase ROM, To improve nutrient delivery to tissue, To improve muscle performance and motor function, To increase tolerance to activity/condition/position and To improve ability of physical actions for home/community/work/leisure Manual Therapy Techniques to Include: Trigger point massage, Mobilization, Passive ROM and Soft tissue mobilization For the Purpose of:: To decrease pain, To increase ROM, To improve nutrient delivery to tissue, To increase oxygenation perfusion and To increase tolerance to activity/condition/position Thermo therapy (hot pack): Yes For the Purpose of:: To decrease pain, To increase ROM and To improve nutrient delivery to tissue Text: Thank you for the opportunity to evaluate your patient. For Medicare and Medicare HMO plans, please review the plan of care and approve it. It will need to be FAXED BACK to us at [phone] for Medicare purposes. For Medicare only, by signing this I certify the plan of care. Please let me know if there are questions or concerns regarding this plan of care. Physician Signature: Date:
--- NOTE | 2023-11-14 10:19 | HP.PTREVAL ---
Re-Evaluation Intro: Dr. Silvestre Castañeda MD, It has been my pleasure to treat WILMAN ESTEVEZ over the last 10 visits for L rhomboid strain. Please see the progress note below for an update on the physical therapy plan of care! Subjective Subjective: Last two days has taken it easy as he can, avoided lifting and twisting. And feels better last couple days. 90% better. Has avoided any lifting and working on cars. Wants to take it easy for a while and see how it goes. Will limit activity. Lies down when he needs to. Objective Objective/Function: 50 B rotations without pain and 70 extension without deviation. Moving well in UE and neck without popping or cracking today. I better spirits with recent rests. Plan Plan Plan: f/u two weeks to check progress with rest and just ROM neck and arms and scap at home for d/c or strength OR back to doctor if inconsistent Balance/Gait/Functional tests Balance/Special Test Scores Quick DASH Score: 20.4525 Goals Goals Goal 1:: sleep without waking at night due to pain Goal Time Frame: 2-4 Weeks Goal Progress: Progressing Goal 2:: Pain in L rhomboid area 90% better and 1/10 at worst, manageable Goal Time Frame: 4-6 Weeks Goal Progress: Progressing Goal 3:: reach for objects with L arm without increased pain Goal Time Frame: 4-6 Weeks Goal Progress: Progressing Goal 4:: I appropriate ex to limit future problems(strength scap) Goal Time Frame: 4-6 Weeks Goal Progress: Not Progressing Goal 5:: Qucick dash score 15 or better Goal Time Frame: 4-6 Weeks Goal Progress: Progressing Anticipated Interventions Anticipated Interventions Patient/Client Instruction: Educate patient on: Condition and Plan of Care For the Purpose of:: To decrease pain, To increase ROM, To improve nutrient delivery to tissue, To improve muscle performance and motor function, To increase tolerance to activity/condition/position and To improve ability of physical actions for home/community/work/leisure Therapeutic Exercise to Include: Strength training, Flexibilty training, Passive ROM and Active ROM For the Purpose of:: To decrease pain, To increase ROM, To improve nutrient delivery to tissue, To improve muscle performance and motor function, To increase tolerance to activity/condition/position and To improve ability of physical actions for home/community/work/leisure Manual Therapy Techniques to Include: Trigger point massage, Mobilization, Passive ROM and Soft tissue mobilization For the Purpose of:: To decrease pain, To increase ROM, To improve nutrient delivery to tissue, To increase oxygenation perfusion and To increase tolerance to activity/condition/position Thermo therapy (hot pack): Yes For the Purpose of:: To decrease pain, To increase ROM and To improve nutrient delivery to tissue Re-Evaluation Ending Re-evaluation ending: Please do not hesitate to contact me at [phone] by phone or if you have questions or concerns regarding this new plan of care! Sincerely, Arnulfo Garcia, DPT, OCS, CSCS
--- NOTE | 2023-11-28 14:32 | HP.PTDCSUM ---
Discharge Summary D/C summary: It has been my pleasure to treat WILMAN ESTEVEZ referred by Dr. Silvestre Castañeda MD, with the diagnosis of L rhomboid strain for a total of 11 visit(s). Discharge Date: 11/28/23 Please see the following information for a summary of their discharge status. Subjective Subjective: Way better as he has been stretching and moving on his own. No pain in the last couple days. Stiff at times generally in neck and spine. Feeling good overall. Rotated tires yesterday with any symptoms. Pain L rhomboid area: Pain Intensity (Out of 10): 1 Overall Improvement % Improvement: 90 Objective Objective/Function: Full UE AROM without pain or stiffness, 55 AROM rotation neck with stiff but no pain, 50 extension. No symptoms b/w scapula today. Goals Goal 1:: sleep without waking at night due to pain Goal Progress: Goal Met Goal 2:: Pain in L rhomboid area 90% better and 1/10 at worst, manageable Goal Progress: Goal Met Goal 3:: reach for objects with L arm without increased pain Goal Progress: Goal Met Goal 4:: I appropriate ex to limit future problems(strength scap) Goal Progress: Goal Met Goal 5:: Qucick dash score 15 or better Goal Progress: Progressing Plan Plan: d/c D/C Information Discharge Comments: To Dr. Castañeda in a couple weeks for blood work and will let Dr. arriaga know if pain returns. d/c sentence: If there are questions or concerns regarding this patient's physical therapy, please feel free to call me at [phone]. Thank you for the referral of this patient. Sincerely, Arnulfo Garcia, DPT, OCS, CSCS Balance/Gait/Functional tests Balance/Special Test Scores Quick DASH Score: 20.4525 Improvement % Improvement: 90
== END 2023-11-28 19:00 | disposition home or self-care (01) ==
LOC: PT 14:00
PROVIDERS: PCP Family Medicine; Referring Provider Family Medicine; Visit Provider Family Medicine
DX: S29.012D Strain of muscle and tendon of back wall of thorax, subsequent encounter (principal); M50.323 Other cervical disc degeneration at C6-C7 level
CPT/HCPCS: 97012; 97035; 97110; 97140; 97161; 97530

== ENCOUNTER → 2024-06-02 | Outpatient (CLI) | payer MEDICARE, OTHER, SELFPAY ==
[2024-06-02 11:39] LABS: Hemoglobin A1c 6.3 % (3.8-5.6)
[2024-06-02 12:26] LABS: BUN 14 mg/dL (7-18); Cholesterol 208 mg/dL (200); Creatinine, Serum 0.96 mg/dL (0.70-1.30); EST Glomerular Filtration Rate 83 mL/min (>60); Est Glom Filt Rate - Afr Amer 100 mL/min (>60); High Density Lipoprotein 48 mg/dL; Triglycerides 154 mg/dL; Very Low Density Lipoprotein 31 mg/dL (5-40)
[2024-06-02 12:50] LABS: BNP,B-Type NATRIURETIC PEPTIDE 11.5 pg/mL (0-100)
== END | disposition home or self-care (01) ==
LOC: MFPLAB 09:04
PROVIDERS: PCP Family Medicine
DX: Z00.00 Encounter for general adult medical examination without abnormal findings (principal); Z13.1 Encounter for screening for diabetes mellitus; Z13.220 Encounter for screening for lipoid disorders
CPT/HCPCS: 80061; 82565; 83036; 83880; 84520

== ENCOUNTER → 2025-06-01 | Outpatient (CLI) | payer MEDICARE, OTHER, SELFPAY ==
[2025-06-01 15:54] LABS: Anion Gap 11 (7-18); BUN 13 mg/dL (4-19); BUN/Creat Ratio 15.1 RATIO (10-20); Calcium,Total 9.3 mg/dL (7.6-11.0); Carbon Dioxide 24.0 mmol/L (20.0-29.0); Chloride 103 mmol/L (96-106); Cholesterol 220 mg/dL (<=200); Glucose 127 mg/dL (70-99); Low Density Lipoprotein Calc. 154 mg/dL; PSA,Total - Annual Screen 3.09 ng/mL (0.02-4.00); Potassium 4.1 mmol/L (3.5-5.1); Triglycerides 117 mg/dL; Very Low Density Lipoprotein 23 mg/dL (5-40); Vitamin D,25 Hydroxy 12.5 ng/mL (30-100); cholesterol:hdl ratio screen 4.87
== END | disposition home or self-care (01) ==
LOC: MFPLAB 11:54
PROVIDERS: PCP Family Medicine; Visit Provider Family Medicine
DX: Z12.5 Encounter for screening for malignant neoplasm of prostate (principal); I10 Essential (primary) hypertension; E55.9 Vitamin D deficiency, unspecified; N41.9 Inflammatory disease of prostate, unspecified
CPT/HCPCS: 36415; 80048; 80061; 82306; 84153; 87086; G0103